=== PATIENT | male | born 1990 | race African-American/Black ===

== ENCOUNTER 2017-09-02 09:02 | Emergency (ER) | payer MEDICAID ==
[~2017-09-02] VITALS: Ht 182.9 cm; Wt 77.1 kg
[2017-09-02] MEDS ORDERED: TRUVADA 100 MG1 EACH PO (09:15)
[2017-09-02] MEDS ORDERED: NORVIR100 MG ORAL (09:18)
[2017-09-02] MEDS ORDERED: PREZISTA600 MG ORAL (09:18)
[2017-09-02 09:45] VITALS: BP 127/85
[2017-09-02] MEDS ORDERED: Dexamethasone 4mg/ml vial IM ONE (09:45)
--- NOTE | 2017-09-02 10:30 | Emergency Room Report ---
History of Present Illness General Chief Complaint: Sore Throat Source: Patient Present Illness HPI 27-year-old male, in no significant past medical history, presenting with sore throat for 2 days. States that he has had slight cough. Pain is worse with swallowing however he has still been able to eat drink fluids. No fever no chills. No change in voice Allergies: Coded Allergies: No Known Allergies (Unverified , 09/02/17) Patient History Past Medical History: see triage record Past Surgical History: none Pertinent Family History: none Reviewed Nursing Documentation: PMH: Agreed, PSxH: Agreed Nursing Documentation-PMH Past Medical History: No History, Except For Review of Systems All Other Systems: negative except mentioned in HPI Physical Exam Vital Signs Date Time Temp Pulse Resp B/P (MAP) Pulse Ox O2 Delivery O2 Flow Rate FiO2 09/02/17 09:11 97.3 78 16 129/88 98 Room Air Sp02 EP Interpretation: reviewed, normal General Appearance: normal inspection, well appearing, no apparent distress, alert, GCS 15, non-toxic Head: normocephalic, atraumatic Eyes: bilateral eye normal inspection, bilateral eye PERRL, bilateral eye EOMI ENT: other - Bilateral tonsillar edema and enlargement, uvula enlargement, uvula is midline, no signs of ANALYSIS DIRECTOR, no exudates Neck: normal inspection, full range of motion, supple Respiratory: normal inspection, lungs clear, normal breath sounds, no respiratory distress, no retraction, no wheezing, speaking full sentences, chest symmetrical Cardiovascular #1: normal inspection, regular rate, rhythm, normal capillary refill Cardiovascular #2: 2+ radial (R), 2+ radial (L) Gastrointestinal: normal inspection, non tender, soft, non-distended, no guarding Musculoskeletal: normal inspection, back normal, normal range of motion, non- tender Neurologic: normal inspection, alert, oriented x3, responsive, motor strength/ tone normal, sensory intact, normal gait, speech normal Psychiatric: normal inspection, judgement/insight normal, memory normal Skin: normal inspection, normal color, no rash, warm/dry, well hydrated, normal turgor Medical Decision Making Diagnostic Impression: Primary Impression: Viral pharyngitis ER Course 27-year-old male with sore throat DDX: Viral vs. infectious mononucleosis vs. bacterial pharyngitis vs. allergies Other serious causes such as ANALYSIS DIRECTOR / RPA / deep space neck infection history/physical most consistent with viral pharyngitis Plan: Motrin already taken by patient this morning, decadron, supportive care. Abx not indicated at this time ER course: Patient remains stable in ED. Decadron given to patient. Disposition: Patient will be discharged to home. Patient will follow up with primary care doctor within 5 days. Strict return precautions discussed with patient such as worsening throat pain/swelling, dysphagia, high fever or chills, shortness of breath, abdominal pain, which may indicate severe illness. Patient verbalized understanding and agreed with plan. Please note that this Emergency Department Report was dictated using [employer] professor technology software, occasionally this can lead to erroneous entry secondary to interpretation by the dictation equipment. Last Vital Signs Date Time Temp Pulse Resp B/P (MAP) Pulse Ox O2 Delivery O2 Flow Rate FiO2 09/02/17 09:45 97.6 70 16 127/85 99 Room Air Disposition: HOME, SELF-CARE Condition: Improved Patient Instructions: Pharyngitis, [id number] Additional Instructions: PLEASE FOLLOW UP WITH YOUR DOCTOR IN 3 DAYS Yonatan Anderosn M.D. Sep 02, 2017 10:30
== END 2017-09-02 09:45 | disposition home or self-care (01) ==
LOC: EMR 09:28
DX: J02.8 Acute pharyngitis due to other specified organisms (principal); B97.89 Other viral agents as the cause of diseases classified elsewhere
CPT/HCPCS: 96372; 99283; J1100